=== PATIENT | female | born 1970 | race Caucasian/White ===

== ENCOUNTER 2017-10-07 22:47 | Emergency (ER) | payer MEDICAID ==
[~2017-10-07] VITALS: Ht 157.5 cm; Wt 56.9 kg
[~2017-10-07 22:47] MED LIST: ALOG25TA PO; LISI-424 PO; METF500T4 PO
[2017-10-07 22:54] VITALS: BP 119/77
--- NOTE | 2017-10-07 23:13 | NUR ---
GLUCOSE TOO HIGH TO READ. SHALINI MORRISON MADE AWARE.
[2017-10-07] MEDS ORDERED: NACL 0.9% 1,000 ML IV SCH (23:27)
--- NOTE | 2017-10-07 23:27 | NUR ---
47 Y/O F W/C/O LOW BACK PAIN X2WKS/ HEMATURIA X YESTERDAY AND PAINFULURINATION X 2 DAYS AGO. PT DENIES ANY FEVER. MED HX DM, GUILLIAN BARRE, KIDNEY INFECTION, KIDNEY STONES. PT IN BED, ON MONITOR, VSS. ER MD MADE AWARE.
--- NOTE | 2017-10-07 23:35 | NUR ---
PT TAKEN TO BED 12
[2017-10-07 23:53] LABS: HEMATOCRIT 42.4 % (36-48); HEMOGLOBIN 14.2 g/dL (12.0-16.0); MEAN CORPUSCULAR HEMOGLOBIN 31 pg (27-31); MEAN CORPUSCULAR HGB CONC 34 g/dL (33-37); MEAN CORPUSCULAR VOLUME 93 fL (80-94); PLATELET COUNT (AUTO) 172 K/uL (140-450); RED BLOOD CELL COUNT(AUTO) 4.56 MIL/uL (4.20-5.40); RED CELL DISTRIBUTION WIDTH 11.3 % (11.6-13.7); WHITE BLOOD COUNT (AUTO) 7.5 K/uL (4.8-10.8)
[2017-10-08 00:04] LABS: APPEARANCE,URINE CLOUDY (CLEAR); BILIRUBIN,URINE NEGATIVE (NEGATIVE); BLOOD, URINE 3+ (NEGATIVE); COLOR,URINE RED (YELLOW); LEUKOCYTE ESTERASE ,URINE TRACE (NEGATIVE); NITRITE, URINE NEGATIVE (NEGATIVE); UGLUCOSE 3+ (NEGATIVE)
[2017-10-08 00:11] LABS: ALBUMIN 3.4 g/dL (3.4-5.0); ANION GAP 15.4 (8-16); CARBON DIOXIDE 25.7 mmol/L (21-32); CREATININE 0.9 mg/dL (0.6-1.3); POTASSIUM 4.1 mmol/L (3.5-5.1); TOTAL BILIRUBIN 0.3 mg/dL (0.0-1.0)
[2017-10-08 00:15] LABS: EOSINOPHILS % (MANUAL) 3 % (0-4); LYMPHOCYTES % (MANUAL) 23 % (20-46); MONOCYTES % (MANUAL) 2 % (5-12)
[2017-10-08] MEDS ORDERED: HYDROcodone/APAP 10/325 MG 1 TAB TAB PO STA (00:38)
[2017-10-08] MEDS ORDERED: NACL 0.9% 1,000 ML IV STA (00:38)
[2017-10-08] MEDS ORDERED: INSULIN HUMAN REGULAR 100 UNITS/ML 10 ML VIAL IVP ONE (00:40)
[2017-10-08 00:47] LABS: RBC,URINE TOO NUMEROUS TO COUN /HPF (0-5); WBC,URINE 0-5 (RARE) /HPF (0-5)
--- NOTE | 2017-10-08 01:00 | NUR ---
PT TAKEN TO CT
--- NOTE | 2017-10-08 01:07 | NUR ---
PT RETURN FROM CT
[2017-10-08] MEDS ORDERED: ONDANSETRON 4 MG/2 ML VIAL IVP ONE (01:50)
[2017-10-08] MEDS ORDERED: MORPHINE SULFATE 4 MG/ML SYR IVP ONE (01:50)
--- NOTE | 2017-10-08 02:32 | NUR ---
IV removed, catheter intact and site benign. Applied folded 4x4 gauze and tape to stop bleeding.
--- NOTE | 2017-10-08 02:37 | NUR ---
Patient discharged with v/s stable. Written and verbal after care instructions given and explained. Patient alert, oriented and verbalized understanding of instructions. Ambulatory with steady gait. All questions addressed prior to discharge. ID band removed. Patient advised to follow up with PMD. Rx of NORCO 5/325, REGLAN 10MG, ATIVAN 1MG given. Patient educated on indication of medication including possible reaction and side effects. Opportunity to ask questions provided and answered.
[2017-10-08 02:38] VITALS: BP 122/79
--- NOTE | 2017-10-08 02:38 | NUR ---
PT STATES DAUGHTER WILL TAKE HER HOME.
== END 2017-10-08 02:37 | disposition home or self-care (01) ==
LOC: MED 22:47
DX: M54.5 Low back pain (principal); R31.9 Hematuria, unspecified; R11.2 Nausea with vomiting, unspecified; E11.9 Type 2 diabetes mellitus without complications; Z79.84 Long term (current) use of oral hypoglycemic drugs; Z79.899 Other long term (current) drug therapy; Z88.1 Allergy status to other antibiotic agents; Z91.013 Allergy to seafood; Z88.8 Allergy status to other drugs, medicaments and biological substances
CPT/HCPCS: 36415; 74176; 80053; 81001; 81025; 83690; 85025; 96361; 96374; 96375; 99285; J1815; J2270; J2405; J7030

== ENCOUNTER 2018-02-05 20:03 | Emergency (ER) | payer MEDICAID ==
[~2018-02-05] VITALS: Ht 157.5 cm; Wt 68.0 kg
[2018-02-05 20:07] VITALS: BP 125/79
--- NOTE | 2018-02-05 20:55 | NUR ---
47 Y/O F W/C/O NON RADIATING L ELBOW PAIN AND CHEST PRESSURE X 3 DAYS. PT STATES AT THE MOMENT IS ONLY THE ELBOW PAIN AND CHRONIC BACK PAIN BODERING HER. PT DENIES ANY PRESSURE TO CHEST AT THE MOMENT. NO OTHER S/S OF DISTRESS NOTED. ER MADE AWARE.
[2018-02-05] MEDS ORDERED: traMADol 50 MG TAB PO ONE (21:20)
[2018-02-05 21:22] LABS: BASOPHILS # (AUTO) 0.3 K/uL (0.00-0.22); EOSINOPHILS # (AUTO) 0.1 K/uL (0-0.4); HEMATOCRIT 43.6 % (36-48); HEMOGLOBIN 14.7 g/dL (12.0-16.0); LYMPHOCYTES # (AUTO) 2.8 K/uL (2.5-16.5); MEAN CORPUSCULAR HEMOGLOBIN 31 pg (27-31); MEAN CORPUSCULAR HGB CONC 34 g/dL (33-37); MEAN CORPUSCULAR VOLUME 92 fL (80-94); MONOCYTES # (AUTO) 0.5 K/uL (0.8-1.0); NEUTROPHILS # (AUTO) 3.1 K/uL (1.8-7.7); PLATELET COUNT (AUTO) 211 K/uL (140-450); RED BLOOD CELL COUNT(AUTO) 4.76 MIL/uL (4.20-5.40); RED CELL DISTRIBUTION WIDTH 11.9 % (11.6-13.7); WHITE BLOOD COUNT (AUTO) 6.8 K/uL (4.8-10.8)
[2018-02-05 21:39] LABS: ALBUMIN 3.7 g/dL (3.4-5.0); ANION GAP 13.6 (8-16); CARBON DIOXIDE 29.3 mmol/L (21-32); CREATININE 0.7 mg/dL (0.6-1.3); POTASSIUM 3.9 mmol/L (3.5-5.1); TOTAL BILIRUBIN 0.3 mg/dL (0.0-1.0)
[2018-02-05] MEDS ORDERED: INSULIN REGULAR, HUMAN 100 UNIT/ML VIAL SUBQ ONE (21:45)
[2018-02-05] MEDS ORDERED: NACL 0.9% 1,500 ML IV ONE (21:45)
--- NOTE | 2018-02-05 22:00 | NUR ---
PT RESTING IN BED, AWATING FOR RESULTS. NO S/S OF DISTRESS NOTED AT THE MOMENT.
[2018-02-05] MEDS ORDERED: MORPHINE SULFATE 2 MG/ML SYR IVP ONE (23:05)
[2018-02-05] MEDS ORDERED: diphenhydrAMINE 50 MG/ML VIAL IVP ONE (23:50)
[2018-02-06 00:30] VITALS: BP 125/78
--- NOTE | 2018-02-06 00:30 | NUR ---
Patient discharged with v/s stable. Written and verbal after care instructions given and explained. Patient verbalized understanding. Ambulatory with steady gait. All questions addressed prior to discharge. Advised to follow up with PMD. PT PICKED UP BY DAUGHTER.
== END 2018-02-06 00:30 | disposition home or self-care (01) ==
LOC: MED 20:03
DX: R07.9 Chest pain, unspecified (principal); E11.65 Type 2 diabetes mellitus with hyperglycemia; Z88.6 Allergy status to analgesic agent; Z88.1 Allergy status to other antibiotic agents; Z91.013 Allergy to seafood
CPT/HCPCS: 36415; 71045; 80053; 84484; 85025; 96361; 96374; 96375; 99285; J1200; J1815; J2270; J7030

== ENCOUNTER 2018-02-11 06:35 | Emergency (ER) | payer MEDICAID ==
[~2018-02-11] VITALS: Ht 157.5 cm; Wt 66.3 kg
[2018-02-11 06:40] VITALS: BP 130/84
--- NOTE | 2018-02-11 06:54 | NUR ---
PATIENT AMBULATED TO BED 11
--- NOTE | 2018-02-11 07:12 | NUR ---
RECEIVED REPORT FROM CESAR ROBLEDO. Addendum: 02/11/18 at 721 by [email or web address] PT STATED HEMATURIA, N/V & MARIA VICTORIA BURNS X YESTERDAY & LOWER BACK PAIN 08/05 AT THIS TIME.
--- NOTE | 2018-02-11 07:12 | NUR ---
REPORT GIVEN TO ANALILIA PAGAN.
--- NOTE | 2018-02-11 07:19 | NUR ---
Patient being evaluated by DR KING at bedside.
[2018-02-11] MEDS ORDERED: MORPHINE SULFATE 4 MG/ML SYR IM ONE (07:20)
--- NOTE | 2018-02-11 07:35 | NUR ---
Patient appears to be resting comfortably in bed. Vital Signs within normal limits. Respirations even and unlabored.WILL CONTINUE TO MONITOR.
[2018-02-11 07:45] VITALS: BP 124/85
--- NOTE | 2018-02-11 07:46 | NUR ---
Patient discharged with v/s stable. Written and verbal after care instructions given and explained. Patient alert, oriented and verbalized understanding of instructions. Ambulatory with steady gait. All questions addressed prior to discharge. ID band removed. Patient advised to follow up with PMD. Rx of BACTRIM DS/ NORCO given. Patient educated on indication of medication including possible reaction and side effects. Opportunity to ask questions provided and answered.
== END 2018-02-11 07:46 | disposition home or self-care (01) ==
LOC: MED 06:35
DX: N39.0 Urinary tract infection, site not specified (principal); E11.9 Type 2 diabetes mellitus without complications; G61.0 Guillain-Barre syndrome; Z90.49 Acquired absence of other specified parts of digestive tract; Z88.6 Allergy status to analgesic agent; Z91.013 Allergy to seafood
CPT/HCPCS: 87086; 96372; 99283; J2270; 81002; 81025

== ENCOUNTER 2018-03-14 00:25 | Emergency (ER) | payer MEDICAID ==
[~2018-03-14] VITALS: Ht 157.5 cm; Wt 70.3 kg
[2018-03-14 00:30] VITALS: BP 108/70
[2018-03-14] MEDS ORDERED: traMADol 50 MG TAB PO ONE (00:55)
[2018-03-14] MEDS ORDERED: NACL 0.9% 1,000 ML IV ONE (00:55)
[2018-03-14 01:06] LABS: BASOPHILS % (AUTO) 0.6 % (0.0-2.0); EOSINOPHILS # (AUTO) 0.1 K/uL (0-0.4); EOSINOPHILS % (AUTO) 0.9 % (0.0-4.0); HEMATOCRIT 44.5 % (36-48); HEMOGLOBIN 15.1 g/dL (12.0-16.0); LYMPHOCYTES # (AUTO) 2.8 K/uL (2.5-16.5); LYMPHOCYTES % (AUTO) 42.2 % (20.5-51.1); MEAN CORPUSCULAR HEMOGLOBIN 32 pg (27-31); MEAN CORPUSCULAR HGB CONC 34 g/dL (33-37); MEAN CORPUSCULAR VOLUME 93.4 fL (80-94); MONOCYTES # (AUTO) 0.4 K/uL (0.8-1.0); MONOCYTES % (AUTO) 6.6 % (1.7-9.3); NEUTROPHILS # (AUTO) 3.3 K/uL (1.8-7.7); NEUTROPHILS % (AUTO) 49.7 % (42.2-75.2); PLATELET COUNT (AUTO) 179 K/uL (140-450); RED BLOOD CELL COUNT(AUTO) 4.76 MIL/uL (4.20-5.40); RED CELL DISTRIBUTION WIDTH 12.2 % (11.6-13.7); WHITE BLOOD COUNT (AUTO) 6.7 K/uL (4.8-10.8)
[2018-03-14 01:24] LABS: ANION GAP 14.8 (8-16); CARBON DIOXIDE 25.1 mmol/L (21-32); CREATININE 0.9 mg/dL (0.6-1.3); POTASSIUM 3.9 mmol/L (3.5-5.1)
[2018-03-14] MEDS ORDERED: INSULIN REGULAR, HUMAN 100 UNIT/ML VIAL IVP ONE (01:30)
[2018-03-14 02:29] VITALS: BP 115/78
== END 2018-03-14 02:29 | disposition home or self-care (01) ==
LOC: MED 00:25
DX: S90.121A Contusion of right lesser toe(s) without damage to nail, initial encounter (principal); E11.9 Type 2 diabetes mellitus without complications; G61.0 Guillain-Barre syndrome; Z88.6 Allergy status to analgesic agent; Z88.1 Allergy status to other antibiotic agents; Z88.8 Allergy status to other drugs, medicaments and biological substances; Z91.013 Allergy to seafood; X58.XXXA Exposure to other specified factors, initial encounter; Y93.89 Activity, other specified; Y92.89 Other specified places as the place of occurrence of the external cause; Y99.8 Other external cause status
CPT/HCPCS: 36415; 73660; 80048; 85025; 96360; 99285; J1815; J7030; Q0092

== ENCOUNTER 2018-06-30 00:35 | Emergency (ER) | payer MEDICAID ==
[~2018-06-30] VITALS: Ht 157.5 cm; Wt 64.6 kg
[2018-06-30 00:35] VITALS: BP 120/76
[~2018-06-30 00:35] MED LIST changes: -METF500T4 PO; +METF500T6 PO
--- NOTE | 2018-06-30 00:42 | NUR ---
PT WAS PRESENTED IN ER WITH C/O PAIN IN THE LOWER BACK/FLANK AND SUPRAPUBIC/ABDOMINAL PAIN. PT STATES SHE HAS BURNING WHILE URINATING. AND CRAMPING X 2 DAYS . DENIES N/V/D; SKIN IS PINK/WARM/DRY; AAOX4 WITH EVEN AND STEADY GAIT. PT DENIES ANY FEVER, OR COUGH AT THIS TIME; PATIENT STATES PAIN OF 8/10 AT THIS TIME; VSS; PATIENT POSITIONED FOR COMFORT; HOB ELEVATED; BEDRAILS UP X2; BED DOWN. ER MD MADE AWARE OF PT STATUS.
--- NOTE | 2018-06-30 00:42 | NUR ---
PT TO BED 3.
[2018-06-30] MEDS ORDERED: NACL 0.9% 1,000 ML IV SCH (01:53)
[2018-06-30] MEDS ORDERED: MORPHINE SULFATE 4 MG/ML SYR IVP ONE (01:55)
[2018-06-30 02:35] LABS: ALBUMIN 3.5 g/dL (3.4-5.0); ANION GAP 10.6 (8-16); CARBON DIOXIDE 29.2 mmol/L (21-32); CREATININE 0.9 mg/dL (0.6-1.3); POTASSIUM 3.8 mmol/L (3.5-5.1); TOTAL BILIRUBIN 0.3 mg/dL (0.0-1.0)
--- NOTE | 2018-06-30 02:38 | NUR ---
Critical lab value from lab: blood glucose: [id number] Dr. Ayala notified
[2018-06-30] MEDS ORDERED: diphenhydrAMINE 50 MG/ML VIAL ONE (02:51)
[2018-06-30 03:14] LABS: BASOPHILS % (AUTO) 0.3 % (0.0-2.0); EOSINOPHILS # (AUTO) 0.1 K/uL (0-0.4); HEMATOCRIT 40.2 % (36-48); HEMOGLOBIN 13.9 g/dL (12.0-16.0); LYMPHOCYTES # (AUTO) 3.2 K/uL (2.5-16.5); LYMPHOCYTES % (AUTO) 52.7 % (20.5-51.1); MEAN CORPUSCULAR HEMOGLOBIN 32 pg (27-31); MEAN CORPUSCULAR HGB CONC 35 g/dL (33-37); MEAN CORPUSCULAR VOLUME 93.1 fL (80-94); MONOCYTES # (AUTO) 0.4 K/uL (0.8-1.0); MONOCYTES % (AUTO) 6.5 % (1.7-9.3); NEUTROPHILS # (AUTO) 2.4 K/uL (1.8-7.7); NEUTROPHILS % (AUTO) 39.5 % (42.2-75.2); PLATELET COUNT (AUTO) 168 K/uL (140-450); RED BLOOD CELL COUNT(AUTO) 4.31 MIL/uL (4.20-5.40); RED CELL DISTRIBUTION WIDTH 12.6 % (11.6-13.7); WHITE BLOOD COUNT (AUTO) 6.2 K/uL (4.8-10.8)
[2018-06-30] MEDS ORDERED: diphenhydrAMINE 50 MG/ML VIAL IVP ONE (03:30)
--- NOTE | 2018-06-30 04:50 | NUR ---
Patient discharged with v/s stable. Written and verbal after care instructions given and explained. Patient alert, oriented and verbalized understanding of instructions. Ambulatory with steady gait. All questions addressed prior to discharge. ID band removed. Patient advised to follow up with PMD. Rx of NORCO WAS GIVEN given. Patient educated on indication of medication including possible reaction and side effects. Opportunity to ask questions provided and answered.
[2018-06-30 05:11] VITALS: BP 106/65
== END 2018-06-30 04:50 | disposition home or self-care (01) ==
LOC: MED 00:35
DX: N23 Unspecified renal colic (principal); E11.65 Type 2 diabetes mellitus with hyperglycemia; Z79.84 Long term (current) use of oral hypoglycemic drugs; Z88.1 Allergy status to other antibiotic agents; Z88.8 Allergy status to other drugs, medicaments and biological substances; Z79.899 Other long term (current) drug therapy
CPT/HCPCS: 36415; 74176; 80053; 81002; 81025; 82948; 83690; 85025; 96361; 96374; 96375; 99285; J1200; J2270; J7030

== ENCOUNTER 2018-08-21 22:22 | Emergency (ER) | payer MEDICAID ==
[~2018-08-21] VITALS: Ht 157.5 cm; Wt 68.0 kg
[2018-08-21 22:23] VITALS: BP 125/82
[2018-08-21] MEDS ORDERED: NACL 0.9% 500 ML IV ONE (22:26)
--- NOTE | 2018-08-21 22:27 | NUR ---
PT TAKEN TO BED 2
--- NOTE | 2018-08-21 22:29 | NUR ---
47/F CAME IN ED, C/O 07/05 CONSTANT LOWER BACK PAIN, X2 DAYS. PT STATED THAT PT STARTED AFTER SHE PASSED A STONE YESTERDAY. PT REPORTS N/V, DYSURIA, HEMATURIA. PT DENIES TRAUMA, FEVER. BS ACTIVE X4, ABD SOFT ROUND NONTENDER. AOX4, AMBULATORY, RR EVEN AND UNLABORED. HX DM, GUILLAN-BARRE SYNDROME, KIDNEY STONES
--- NOTE | 2018-08-21 22:32 | NUR ---
Dr. Dao evaluating patient at bedside.
[2018-08-21] MEDS ORDERED: MORPHINE SULFATE 2 MG/ML SYR IVP ONE (22:35)
[2018-08-21] MEDS ORDERED: METOCLOPRAMIDE 10 MG/2 ML INJ VIAL IVP ONE (22:35)
--- NOTE | 2018-08-21 22:52 | NUR ---
PT TAKEN TO CT
--- NOTE | 2018-08-21 23:01 | NUR ---
PT RETURN FROM CT
[2018-08-21] MEDS ORDERED: NACL 0.9% 2,000 ML IV ONE (23:10)
[2018-08-21] MEDS ORDERED: diphenhydrAMINE 50 MG/ML VIAL IVP ONE (23:10)
--- NOTE | 2018-08-21 23:14 | NUR ---
PT REPORTS ITCHING IN FACE AFTER MORPHINE IVP, NO HIVES NOTED. BS 551 AT THIS TIME. ER MD MADE AWARE. MED AND IVF GIVEN WITH EDUCATION.
[2018-08-21] MEDS ORDERED: cefTRIAXone 1,000 MG VIAL ONE (23:55)
[2018-08-22 00:09] LABS: APPEARANCE,URINE CLOUDY (CLEAR); BILIRUBIN,URINE NEGATIVE (NEGATIVE); BLOOD, URINE 3+ (NEGATIVE); COLOR,URINE RED (YELLOW); LEUKOCYTE ESTERASE ,URINE NEGATIVE (NEGATIVE); NITRITE, URINE NEGATIVE (NEGATIVE); UGLUCOSE 3+ (NEGATIVE)
[2018-08-22] MEDS ORDERED: INSULIN REGULAR, HUMAN 100 UNIT/ML VIAL SUBQ ONE (00:10)
[2018-08-22 00:22] LABS: RBC,URINE TOO NUMEROUS TO COUN /HPF (0-5); WBC,URINE 0-5 (RARE) /HPF (0-5)
[2018-08-22 00:40] LABS: BASOPHILS % (AUTO) 0.5 % (0.0-2.0); HEMATOCRIT 43.1 % (36-48); HEMOGLOBIN 14.8 g/dL (12.0-16.0); MEAN CORPUSCULAR HEMOGLOBIN 32 pg (27-31); MONOCYTES # (AUTO) 0.5 K/uL (0.8-1.0); NEUTROPHILS # (AUTO) 3.5 K/uL (1.8-7.7); WHITE BLOOD COUNT (AUTO) 7.5 K/uL (4.8-10.8)
[2018-08-22 00:45] LABS: EOSINOPHILS % (AUTO) 0.6 % (0.0-4.0); LYMPHOCYTES # (AUTO) 3.4 K/uL (2.5-16.5); LYMPHOCYTES % (AUTO) 44.9 % (20.5-51.1); MEAN CORPUSCULAR HGB CONC 34 g/dL (33-37); MEAN CORPUSCULAR VOLUME 93.5 fL (80-94); RED CELL DISTRIBUTION WIDTH 12.4 % (11.6-13.7)
[2018-08-22 00:50] LABS: PLATELET COUNT (AUTO) 87 K/uL (140-450)
[2018-08-22 00:53] LABS: ANION GAP 12.5 (8-16); CARBON DIOXIDE 24.3 mmol/L (21-32); CREATININE 0.8 mg/dL (0.6-1.3); POTASSIUM 3.8 mmol/L (3.5-5.1)
--- NOTE | 2018-08-22 01:11 | NUR ---
BS 346 MADE AWARE.
[2018-08-22 01:34] VITALS: BP 113/90
--- NOTE | 2018-08-22 01:34 | NUR ---
Patient discharged with v/s stable. Written and verbal after care instructions given and explained. Patient alert, oriented and verbalized understanding of instructions. Ambulatory with steady gait. All questions addressed prior to discharge. ID band removed. Patient advised to follow up with PMD. Rx of TRAMADOL AND MACROBID was given. Patient educated on indication of medication including possible reaction and side effects. Opportunity to ask questions provided and answered.
== END 2018-08-22 01:34 | disposition home or self-care (01) ==
LOC: MED 22:22
DX: N30.01 Acute cystitis with hematuria (principal); E11.65 Type 2 diabetes mellitus with hyperglycemia; G61.0 Guillain-Barre syndrome; Z88.6 Allergy status to analgesic agent; Z88.1 Allergy status to other antibiotic agents; Z88.2 Allergy status to sulfonamides; Z79.899 Other long term (current) drug therapy; Z79.84 Long term (current) use of oral hypoglycemic drugs
CPT/HCPCS: 36415; 74176; 80048; 81001; 81002; 81025; 82948; 85025; 96361; 96365; 96372; 96375; 99284; J0696; J1200; J1815; J2270; J2765; J7030; J7060

== ENCOUNTER 2018-09-18 21:14 | Emergency (ER) | payer MEDICAID ==
[~2018-09-18] VITALS: Ht 157.5 cm; Wt 70.3 kg
[~2018-09-18 21:14] MED LIST changes: +METF-988 PO; -METF500T6 PO
[2018-09-18 21:20] VITALS: BP 120/73
[2018-09-18] MEDS ORDERED: fentaNYL 0.05 MG/ML VIAL IM ONE (22:05)
[2018-09-18] MEDS ORDERED: ACETAMINOPHEN EXTRA STRENGTH 500 MG TAB PO ONE (22:05)
[2018-09-18 22:51] VITALS: BP 123/72
== END 2018-09-18 22:45 | disposition home or self-care (01) ==
LOC: MED 21:14
DX: S63.502A Unspecified sprain of left wrist, initial encounter (principal); M25.512 Pain in left shoulder; E11.9 Type 2 diabetes mellitus without complications; Z90.49 Acquired absence of other specified parts of digestive tract; Z88.6 Allergy status to analgesic agent; Z88.1 Allergy status to other antibiotic agents; Z79.899 Other long term (current) drug therapy; Z91.013 Allergy to seafood; X58.XXXA Exposure to other specified factors, initial encounter; Y93.01 Activity, walking, marching and hiking; Y92.89 Other specified places as the place of occurrence of the external cause; Y99.8 Other external cause status
CPT/HCPCS: 73030; 73110; 96372; 99284; J3010

== ENCOUNTER 2019-01-27 19:10 | Emergency (ER) | payer MEDICAID ==
[~2019-01-27] VITALS: Ht 157.5 cm; Wt 65.9 kg
[2019-01-27 19:55] VITALS: BP 132/86
[2019-01-27 20:54] LABS: BASOPHILS % (AUTO) 0.4 % (0.0-2.0); EOSINOPHILS % (AUTO) 0.3 % (0.0-4.0); HEMATOCRIT 43.4 % (36-48); LYMPHOCYTES # (AUTO) 2.4 K/uL (2.5-16.5); LYMPHOCYTES % (AUTO) 36.6 % (20.5-51.1); MEAN CORPUSCULAR HEMOGLOBIN 32 pg (27-31); MEAN CORPUSCULAR HGB CONC 35 g/dL (33-37); MONOCYTES # (AUTO) 0.4 K/uL (0.8-1.0); MONOCYTES % (AUTO) 6.4 % (1.7-9.3); NEUTROPHILS # (AUTO) 3.7 K/uL (1.8-7.7); NEUTROPHILS % (AUTO) 56.3 % (42.2-75.2); PLATELET COUNT (AUTO) 184 K/uL (140-450); RED BLOOD CELL COUNT(AUTO) 4.72 MIL/uL (4.20-5.40); RED CELL DISTRIBUTION WIDTH 12.4 % (11.6-13.7); WHITE BLOOD COUNT (AUTO) 6.5 K/uL (4.8-10.8)
[2019-01-27 20:55] LABS: APPEARANCE,URINE CLEAR (CLEAR); BILIRUBIN,URINE NEGATIVE (NEGATIVE); BLOOD, URINE 3+ (NEGATIVE); COLOR,URINE RED (YELLOW); LEUKOCYTE ESTERASE ,URINE 1+ (NEGATIVE); NITRITE, URINE NEGATIVE (NEGATIVE); UGLUCOSE 3+ (NEGATIVE)
[2019-01-27 21:05] LABS: RBC,URINE TOO NUMEROUS TO COUN /HPF (0-5)
[2019-01-27 21:06] LABS: URINE AMORPHOUS URATE 1+ /HPF (None Seen)
--- NOTE | 2019-01-27 21:07 | NUR ---
PT TAKEN TO BED 7
[2019-01-27 21:11] LABS: ALBUMIN 3.8 g/dL (3.4-5.0); ANION GAP 13.6 (8-16); CARBON DIOXIDE 27.7 mmol/L (21-32); CREATININE 0.9 mg/dL (0.6-1.3); POTASSIUM 4.3 mmol/L (3.5-5.1); TOTAL BILIRUBIN 0.3 mg/dL (0.0-1.0)
[2019-01-27] MEDS ORDERED: NACL 0.9% 1,000 ML IV ONE (21:20)
--- NOTE | 2019-01-27 21:30 | NUR ---
PT BIB SELF C/O LOWER BACK PAIN, DYSURIA X3 DAYS. PT STATES SUDDEN ONSET OF LOWER BACK PAIN WHILE AT WORK X3 DAYS, +HEMATURIA, +DYSURIA, +BURNING W/ URINATION. PT STATES 8/10 LOWER BACK PAIN THAT RADIATES TO INNER LEFT THIGH. --DENIES N/V/D; SKIN IS PINK/WARM/DRY; AAOX4 WITH EVEN AND STEADY GAIT; LUNGS CLEAR BL; HR EVEN AND REGULAR; PT DENIES ANY FEVER, CP, SOB, OR COUGH AT THIS TIME; VSS; PATIENT POSITIONED FOR COMFORT; HOB ELEVATED; BEDRAILS UP X2; BED DOWN. ER MD MADE AWARE OF PT STATUS. PMH: Guillain-Pembroke, DM, KIDNEY STONES
--- NOTE | 2019-01-27 21:58 | NUR ---
Dr. Nelson evaluating patient at bedside.
[2019-01-27] MEDS ORDERED: INSULIN REGULAR, HUMAN 100 UNIT/ML VIAL SUBQ ONE (22:05)
[2019-01-27] MEDS ORDERED: diphenhydrAMINE 50 MG/ML VIAL IVP ONE (22:05)
[2019-01-27] MEDS ORDERED: MORPHINE SULFATE 4 MG/ML SYR IVP ONE (22:05)
[2019-01-27] MEDS ORDERED: INSULIN REGULAR, HUMAN 100 UNIT/ML VIAL IV ONE (23:30)
[2019-01-28 00:50] VITALS: BP 138/80
--- NOTE | 2019-01-28 00:50 | NUR ---
Patient discharged with v/s stable. Written and verbal after care instructions given and explained. Patient alert, oriented and verbalized understanding of instructions. Ambulatory with steady gait. All questions addressed prior to discharge. ID band removed. Patient advised to follow up with PMD. Rx of CIPRO AND TRAMADOL given. Patient educated on indication of medication including possible reaction and side effects. Opportunity to ask questions provided and answered.
== END 2019-01-28 00:50 | disposition home or self-care (01) ==
LOC: MED 19:10
DX: N39.0 Urinary tract infection, site not specified (principal); E11.65 Type 2 diabetes mellitus with hyperglycemia; Z76.0 Encounter for issue of repeat prescription; R05 Cough; G61.0 Guillain-Barre syndrome; Z87.442 Personal history of urinary calculi; Z90.49 Acquired absence of other specified parts of digestive tract; Z98.890 Other specified postprocedural states; Z79.4 Long term (current) use of insulin; Z79.899 Other long term (current) drug therapy; Z88.6 Allergy status to analgesic agent; Z88.8 Allergy status to other drugs, medicaments and biological substances; Z88.1 Allergy status to other antibiotic agents; Z91.013 Allergy to seafood
CPT/HCPCS: 36415; 80053; 81001; 85025; 87086; 96361; 96372; 96374; 96375; 99283; J1200; J1815; J2270; J7030

== ENCOUNTER 2019-03-07 03:38 | Emergency (ER) | payer MEDICAID ==
[~2019-03-07] VITALS: Ht 157.5 cm; Wt 68.0 kg
[2019-03-07 03:48] VITALS: BP 128/90
--- NOTE | 2019-03-07 03:48 | NUR ---
TO BED # 07 AMBULATORY
--- NOTE | 2019-03-07 03:56 | NUR ---
48 YO F BIB SELF C/O 07/05 LOWER ABD CRAMPING PAIN X 2 DAYS S/P PASSING KIDNEY STONE. PT STATES SHE PASSED KIDNEY STONE ON SUNDAY AND BEGAN HAVING "PERIOD-LIKE" CRAMPING. PT STATES LAST PERIOD WAS IN 2008. PMH: DM, KIDNEY STONES, GUILLIAN BARRE
--- NOTE | 2019-03-07 04:10 | NUR ---
DR. CHAVEZ BEDSIDE WITH PT
[2019-03-07] MEDS ORDERED: MORPHINE SULFATE 4 MG/ML SYR IM ONE (04:15)
[2019-03-07] MEDS ORDERED: NACL 0.9% 1,000 ML IV ONE ×2 (04:15→04:55)
[2019-03-07 04:33] LABS: APPEARANCE,URINE CLOUDY (CLEAR); BILIRUBIN,URINE NEGATIVE (NEGATIVE); BLOOD, URINE 3+ (NEGATIVE); COLOR,URINE RED (YELLOW); LEUKOCYTE ESTERASE ,URINE TRACE (NEGATIVE); NITRITE, URINE NEGATIVE (NEGATIVE); UGLUCOSE 3+ (NEGATIVE)
[2019-03-07 04:35] LABS: BASOPHILS # (AUTO) 0.2 K/uL (0.00-0.22); BASOPHILS % (AUTO) 2.5 % (0.0-2.0); EOSINOPHILS # (AUTO) 0.7 K/uL (0-0.4); EOSINOPHILS % (AUTO) 10.6 % (0.0-4.0); HEMOGLOBIN 14.6 g/dL (12.0-16.0); LYMPHOCYTES % (AUTO) 31.9 % (20.5-51.1); MEAN CORPUSCULAR HEMOGLOBIN 32 pg (27-31); MEAN CORPUSCULAR HGB CONC 35 g/dL (33-37); MEAN CORPUSCULAR VOLUME 93.2 fL (80-94); MONOCYTES # (AUTO) 0.4 K/uL (0.8-1.0); PLATELET COUNT (AUTO) 193 K/uL (140-450); RED BLOOD CELL COUNT(AUTO) 4.51 MIL/uL (4.20-5.40); RED CELL DISTRIBUTION WIDTH 12.3 % (11.6-13.7); WHITE BLOOD COUNT (AUTO) 6.1 K/uL (4.8-10.8)
[2019-03-07 04:42] LABS: RBC,URINE TOO NUMEROUS TO COUN /HPF (0-5); WBC,URINE 0-5 /HPF (0-5)
[2019-03-07 04:46] LABS: ALBUMIN 3.6 g/dL (3.4-5.0); ANION GAP 14.2 (8-16); CARBON DIOXIDE 26.5 mmol/L (21-32); CREATININE 0.7 mg/dL (0.6-1.3); POTASSIUM 3.7 mmol/L (3.5-5.1); TOTAL BILIRUBIN 0.3 mg/dL (0.0-1.0)
[2019-03-07] MEDS ORDERED: diphenhydrAMINE 50 MG/ML VIAL IVP ONE (05:05)
[2019-03-07] MEDS ORDERED: INSULIN REGULAR, HUMAN 100 UNIT/ML VIAL SUBQ ONE (05:05)
[2019-03-07 06:14] VITALS: BP 110/67
--- NOTE | 2019-03-07 06:14 | NUR ---
Patient discharged with v/s stable. Written and verbal after care instructions given and explained. Patient alert, oriented and verbalized understanding of instructions. Ambulatory with steady gait. All questions addressed prior to discharge. ID band removed. Patient advised to follow up with PMD. Rx of [place], Ciproflaxacin given. Patient educated on indication of medication including possible reaction and side effects. Opportunity to ask questions provided and answered.
== END 2019-03-07 06:14 | disposition home or self-care (01) ==
LOC: MED 03:38
DX: N34.2 Other urethritis (principal); E11.9 Type 2 diabetes mellitus without complications; Z79.84 Long term (current) use of oral hypoglycemic drugs; Z79.899 Other long term (current) drug therapy; Z88.1 Allergy status to other antibiotic agents; Z88.6 Allergy status to analgesic agent; Z88.8 Allergy status to other drugs, medicaments and biological substances; Z87.442 Personal history of urinary calculi
CPT/HCPCS: 36415; 80053; 81001; 81025; 82803; 82948; 83690; 85025; 96372; 96374; 96375; 99283; J1200; J1815; J2270; J7030

== ENCOUNTER 2019-03-08 15:54 | Emergency (ER) | payer MEDICAID ==
[~2019-03-08] VITALS: Ht 157.5 cm; Wt 64.9 kg
[2019-03-08 15:59] VITALS: BP 133/84
[2019-03-08 16:31] LABS: APPEARANCE,URINE HAZY (CLEAR); BILIRUBIN,URINE NEGATIVE (NEGATIVE); BLOOD, URINE 3+ (NEGATIVE); COLOR,URINE RED (YELLOW); LEUKOCYTE ESTERASE ,URINE NEGATIVE (NEGATIVE); NITRITE, URINE NEGATIVE (NEGATIVE); UGLUCOSE 3+ (NEGATIVE)
[2019-03-08 16:38] LABS: RBC,URINE TOO NUMEROUS TO COUN /HPF (0-5); WBC,URINE 0-5 /HPF (0-5)
--- NOTE | 2019-03-08 18:45 | NUR ---
PT AMBULATED TO BED 03.
--- NOTE | 2019-03-08 19:12 | NUR ---
48 YO F BIB DAUGHTER PRESENTS TO THE ED C/O ONGOING 09/04 FLANK/ LOWER BACK PAIN X 2 DAYS. PT WAS SEEN AT [facility] ED SUNDAY MORNING FOR SIMILAR PAIN S/P PASSING A KIDNEY STONE. PT RECEIVED RX FOR NORCO AND STATES THAT IT DOES NOT RELIEVE PAIN AND MAKES HER NAUSEOUS. PT ALSO REPORTS BLOOD TINGED DISCHARGE FROM HER [facility]. -- PMH: KIDNEY STONES, DM, ALLEN BARRE PT POSITIONED FOR COMFORT. HOB ELEVATED. SIDE RAIL UP X1. BED IN LOWEST POSITION. NO APPARENT DISTRESS AT THIS TIME. VSS.
--- NOTE | 2019-03-08 19:12 | NUR ---
RECIEVED REPORT FROM CESAR LYONS.
[2019-03-08] MEDS ORDERED: METOCLOPRAMIDE 10 MG/2 ML INJ VIAL IVP ONE (19:15)
[2019-03-08] MEDS ORDERED: NACL 0.9% 1,000 ML IV ONE ×2 (19:15→20:55)
[2019-03-08 19:36] LABS: BASOPHILS % (AUTO) 0.4 % (0.0-2.0); EOSINOPHILS % (AUTO) 0.1 % (0.0-4.0); HEMATOCRIT 48.2 % (36-48); HEMOGLOBIN 16.5 g/dL (12.0-16.0); LYMPHOCYTES # (AUTO) 2.6 K/uL (2.5-16.5); LYMPHOCYTES % (AUTO) 31.6 % (20.5-51.1); MEAN CORPUSCULAR HEMOGLOBIN 32 pg (27-31); MEAN CORPUSCULAR HGB CONC 34 g/dL (33-37); MEAN CORPUSCULAR VOLUME 93.9 fL (80-94); MONOCYTES # (AUTO) 0.4 K/uL (0.8-1.0); MONOCYTES % (AUTO) 4.7 % (1.7-9.3); NEUTROPHILS # (AUTO) 5.2 K/uL (1.8-7.7); NEUTROPHILS % (AUTO) 63.2 % (42.2-75.2); PLATELET COUNT (AUTO) 202 K/uL (140-450); RED BLOOD CELL COUNT(AUTO) 5.14 MIL/uL (4.20-5.40); RED CELL DISTRIBUTION WIDTH 12.4 % (11.6-13.7); WHITE BLOOD COUNT (AUTO) 8.2 K/uL (4.8-10.8)
--- NOTE | 2019-03-08 19:53 | NUR ---
US AT BEDSIDE.
[2019-03-08 19:59] LABS: ALBUMIN 3.8 g/dL (3.4-5.0); ANION GAP 15.6 (8-16); CARBON DIOXIDE 25.9 mmol/L (21-32); CREATININE 0.8 mg/dL (0.6-1.3); POTASSIUM 3.5 mmol/L (3.5-5.1); TOTAL BILIRUBIN 0.5 mg/dL (0.0-1.0)
[2019-03-08] MEDS ORDERED: INSULIN REGULAR, HUMAN 100 UNIT/ML VIAL SUBQ ONE (20:55)
[2019-03-08] MEDS ORDERED: MORPHINE SULFATE 4 MG/ML SYR IVP ONE (21:10)
[2019-03-08] MEDS ORDERED: diphenhydrAMINE 50 MG/ML VIAL IVP ONE ×2 (21:25→22:25)
--- NOTE | 2019-03-08 21:30 | NUR ---
PATIENT RESTING AT THIS TIME; NO SIGNS OF DISTRESS.
--- NOTE | 2019-03-08 22:00 | NUR ---
PATIENT RESTING AT THIS TIME; NO SIGNS OF DISTRESS.
[2019-03-08] MEDS ORDERED: ACETAMINOPHEN EXTRA STRENGTH 500 MG TAB PO ONE (23:25)
[2019-03-08] MEDS ORDERED: MORPHINE SULFATE 2 MG/ML SYR IVP ONE (23:25)
[2019-03-09 00:50] VITALS: BP 129/88
--- NOTE | 2019-03-09 00:50 | NUR ---
Patient discharged with v/s stable. Written and verbal after care instructions given and explained. Patient alert, oriented and verbalized understanding of instructions. Ambulatory with steady gait. All questions addressed prior to discharge. ID band removed. Patient advised to follow up with PMD. Rx of TRAMADOL 50MG given. Patient educated on indication of medication including possible reaction and side effects. Opportunity to ask questions provided and answered.
--- NOTE | 2019-03-10 14:18 | NUR ---
Late entry. Confirmed with RN that 1000 ml 0.9 NS ended at 2210.
== END 2019-03-08 23:59 | disposition home or self-care (01) ==
LOC: MED 15:54
DX: N20.0 Calculus of kidney (principal); E11.9 Type 2 diabetes mellitus without complications; Z87.442 Personal history of urinary calculi; Z79.84 Long term (current) use of oral hypoglycemic drugs; Z79.899 Other long term (current) drug therapy; Z91.013 Allergy to seafood; Z88.6 Allergy status to analgesic agent; Z88.8 Allergy status to other drugs, medicaments and biological substances; Z88.1 Allergy status to other antibiotic agents
CPT/HCPCS: 36415; 76770; 80053; 81001; 81025; 82948; 83690; 85025; 96361; 96372; 96374; 96375; 96376; 99284; J1200; J1815; J2270; J2765; Q0092; J7030

== ENCOUNTER 2019-03-28 00:18 | Emergency (ER) | payer MEDICAID ==
[~2019-03-28] VITALS: Ht 152.4 cm; Wt 65.8 kg
[2019-03-28 00:35] VITALS: BP 115/84
--- NOTE | 2019-03-28 00:36 | NUR ---
TO ER BED 8
--- NOTE | 2019-03-28 00:40 | NUR ---
PT IS A 48 Y/O FEMALE WHO PRESENTS TO THE ED C/O LOW BACK PAIN/DYSURIA. 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 PT REPORTS 10/10 STABBING LOW BACK PAIN AND BURNING URINARY PAIN. PT DENIES CP, SOB, N/V/D. PT AWAKE AND ALERT, RR EVEN/UNLABORED. PT REPOSITIONED FOR COMFORT, BED IN LOWEST POSITION. ER MD DR. JEROME NOTIFIED. WILL CONTINUE TO MONITOR.
[2019-03-28] MEDS ORDERED: NACL 0.9% 500 ML IV ONE (01:47)
[2019-03-28] MEDS ORDERED: fentaNYL 0.05 MG/ML VIAL IVP ONE (01:50)
[2019-03-28] MEDS ORDERED: METOCLOPRAMIDE 10 MG/2 ML INJ VIAL IVP ONE (01:50)
--- NOTE | 2019-03-28 02:00 | NUR ---
Pt awake. VSS at this time. Bed in lowest postion. Will continue to monitor.
[2019-03-28 02:04] LABS: BASOPHILS % (AUTO) 0.3 % (0.0-2.0); EOSINOPHILS # (AUTO) 0.1 K/uL (0-0.4); EOSINOPHILS % (AUTO) 0.7 % (0.0-4.0); HEMATOCRIT 43.9 % (36-48); HEMOGLOBIN 15.4 g/dL (12.0-16.0); LYMPHOCYTES # (AUTO) 3.8 K/uL (2.5-16.5); LYMPHOCYTES % (AUTO) 53.1 % (20.5-51.1); MEAN CORPUSCULAR HEMOGLOBIN 33 pg (27-31); MEAN CORPUSCULAR HGB CONC 35 g/dL (33-37); MONOCYTES # (AUTO) 0.4 K/uL (0.8-1.0); MONOCYTES % (AUTO) 5.9 % (1.7-9.3); NEUTROPHILS # (AUTO) 2.9 K/uL (1.8-7.7); PLATELET COUNT (AUTO) 198 K/uL (140-450); RED BLOOD CELL COUNT(AUTO) 4.72 MIL/uL (4.20-5.40); RED CELL DISTRIBUTION WIDTH 12.2 % (11.6-13.7); WHITE BLOOD COUNT (AUTO) 7.2 K/uL (4.8-10.8)
[2019-03-28 02:18] LABS: ALBUMIN 3.7 g/dL (3.4-5.0); ANION GAP 11.4 (8-16); CARBON DIOXIDE 29.4 mmol/L (21-32); CREATININE 0.8 mg/dL (0.6-1.3); POTASSIUM 3.8 mmol/L (3.5-5.1); TOTAL BILIRUBIN 0.4 mg/dL (0.0-1.0)
[2019-03-28 03:25] VITALS: BP 118/81
--- NOTE | 2019-03-28 03:25 | NUR ---
Patient discharged with v/s stable. Written and verbal after care instructions given and explained. Patient alert, oriented and verbalized understanding of instructions. Ambulatory with steady gait. All questions addressed prior to discharge. ID band removed. Patient advised to follow up with PMD. Rx of MEDROL DOSEPAK, TRAMADOL, AND ROBAXIN given. Patient educated on indication of medication including possible reaction and side effects. Opportunity to ask questions provided and answered.
== END 2019-03-28 03:25 | disposition home or self-care (01) ==
LOC: MED 00:18
DX: S39.012A Strain of muscle, fascia and tendon of lower back, initial encounter (principal); M54.42 Lumbago with sciatica, left side; X58.XXXA Exposure to other specified factors, initial encounter; Y93.89 Activity, other specified; Y92.89 Other specified places as the place of occurrence of the external cause; Y99.8 Other external cause status; E11.9 Type 2 diabetes mellitus without complications; Z87.442 Personal history of urinary calculi; Z79.84 Long term (current) use of oral hypoglycemic drugs; Z79.899 Other long term (current) drug therapy; Z88.6 Allergy status to analgesic agent; Z88.1 Allergy status to other antibiotic agents; Z88.8 Allergy status to other drugs, medicaments and biological substances; Z91.013 Allergy to seafood
CPT/HCPCS: 36415; 74176; 80053; 81002; 81025; 85025; 96374; 96375; 99284; J2765; J3010; J7030

== ENCOUNTER 2019-05-02 12:45 | Emergency (ER) | payer MEDICAID ==
[~2019-05-02] VITALS: Ht 157.5 cm; Wt 64.0 kg
[2019-05-02 12:49] VITALS: BP 119/81
--- NOTE | 2019-05-02 12:56 | NUR ---
PT AMBULATED TO BED 4
--- NOTE | 2019-05-02 12:56 | NUR ---
PATIENT PRESENTS TO ED WITH C/O LT SIDED LOWER BACK PAIN X4 DAYS. SHARP PAIN AT 8/10 THAT RADIATES TO LLQ AND PELVIC AREA. PT REPORTS FREQUENT URINATION AND AND STABING PAIN WITH URINATION. PT STATES N/V PRESENT. SKIN IS PINK/WARM/DRY; AAOX4 WITH EVEN AND STEADY GAIT; LUNGS CLEAR BL; HR EVEN AND REGULAR;
[2019-05-02] MEDS ORDERED: diphenhydrAMINE 50 MG/ML VIAL IM ONE (13:05)
[2019-05-02] MEDS ORDERED: MORPHINE SULFATE 4 MG/ML SYR IM ONE (13:05)
--- NOTE | 2019-05-02 14:23 | NUR ---
DR BRYAN AT BEDSIDE
--- NOTE | 2019-05-02 14:29 | NUR ---
PAIN 3/10 AT THIS TIME.
[2019-05-02 14:30] VITALS: BP 126/80
--- NOTE | 2019-05-02 14:30 | NUR ---
Patient discharged with v/s stable. Written and verbal after care instructions given and explained. Patient alert, oriented and verbalized understanding of instructions. Ambulatory with steady gait. All questions addressed prior to discharge. ID band removed. Patient advised to follow up with PMD. Rx of TRAMADOL HYDROCHLORIDE given. Patient educated on indication of medication including possible reaction and side effects. Opportunity to ask questions provided and answered.
== END 2019-05-02 14:30 | disposition home or self-care (01) ==
LOC: MED 12:45
DX: G89.29 Other chronic pain (principal); M54.5 Low back pain; R35.0 Frequency of micturition; R30.9 Painful micturition, unspecified; E11.9 Type 2 diabetes mellitus without complications; Z90.49 Acquired absence of other specified parts of digestive tract; Z87.442 Personal history of urinary calculi; Z79.84 Long term (current) use of oral hypoglycemic drugs; Z79.899 Other long term (current) drug therapy; Z91.013 Allergy to seafood; Z88.6 Allergy status to analgesic agent; Z88.8 Allergy status to other drugs, medicaments and biological substances; Z88.1 Allergy status to other antibiotic agents
CPT/HCPCS: 96372; 99283; J1200; J2270; 81002; 81025

== ENCOUNTER 2019-05-10 01:05 | Emergency (ER) | payer MEDICAID ==
[~2019-05-10] VITALS: Ht 157.5 cm; Wt 64.9 kg
[2019-05-10 01:16] VITALS: BP 137/85
--- NOTE | 2019-05-10 01:20 | NUR ---
PT SENT TO LOBBY TO WAIT FOR AVAILABLE BED.
--- NOTE | 2019-05-10 01:38 | NUR ---
PT AMBULATED TO ER BED 7
--- NOTE | 2019-05-10 01:40 | NUR ---
48/F PRESENTS TO ED, C/O L LOWER BACK PAIN AND HEMATURIA, X1 WEEK. REPORTS DYSURIA. DENIES INJURY/TRAUMA, NO ABNORMALITY NOTED ON BACK. PT DENIES FEVER, CP, SOB, N/V/D, CONSTIPATION. AOX4, SKIN NORMAL WARM AND DRY, RR EVEN AND UNLABORED. LUNG SOUNDS CLEAR BL. BS ACTIVE X4, ABD SOFT ROUND NONTENDER. HX DM, GUILLAN BARRE, KIDNEY STONES, CHOLECYSTECTOMY, OVARY REMOVED
[2019-05-10] MEDS ORDERED: MORPHINE SULFATE 4 MG/ML SYR IVP ONE (02:00)
[2019-05-10 02:23] LABS: HEMATOCRIT 40.5 % (36-48); HEMOGLOBIN 14.2 g/dL (12.0-16.0); MEAN CORPUSCULAR HEMOGLOBIN 32 pg (27-31); MEAN CORPUSCULAR HGB CONC 35 g/dL (33-37); MEAN CORPUSCULAR VOLUME 92.3 fL (80-94); PLATELET COUNT (AUTO) 201 K/uL (140-450); RED BLOOD CELL COUNT(AUTO) 4.39 MIL/uL (4.20-5.40); RED CELL DISTRIBUTION WIDTH 12.4 % (11.6-13.7); WHITE BLOOD COUNT (AUTO) 6.7 K/uL (4.8-10.8)
[2019-05-10 02:30] LABS: APPEARANCE,URINE CLOUDY (CLEAR); BILIRUBIN,URINE NEGATIVE (NEGATIVE); BLOOD, URINE 3+ (NEGATIVE); COLOR,URINE RED (YELLOW); LEUKOCYTE ESTERASE ,URINE NEGATIVE (NEGATIVE); NITRITE, URINE NEGATIVE (NEGATIVE); UGLUCOSE 3+ (NEGATIVE)
[2019-05-10 02:40] LABS: EOSINOPHILS % (MANUAL) 1 % (0-4); LYMPHOCYTES % (MANUAL) 58 % (20-46); MONOCYTES % (MANUAL) 5 % (5-12)
[2019-05-10 02:41] LABS: ALBUMIN 3.5 g/dL (3.4-5.0); ANION GAP 12.7 (8-16); CARBON DIOXIDE 24.7 mmol/L (21-32); CREATININE 0.7 mg/dL (0.6-1.3); POTASSIUM 3.4 mmol/L (3.5-5.1); TOTAL BILIRUBIN 0.3 mg/dL (0.0-1.0)
[2019-05-10 02:44] LABS: RBC,URINE TOO NUMEROUS TO COUN /HPF (0-5); WBC,URINE 0-5 /HPF (0-5)
--- NOTE | 2019-05-10 02:47 | NUR ---
PT TAKEN TO CT
--- NOTE | 2019-05-10 02:52 | NUR ---
PT RETURNED FROM CT VIA WHEELCHAIR
--- NOTE | 2019-05-10 03:30 | NUR ---
DR PRICE AT BEDSIDE TO SPEAK WITH PT
--- NOTE | 2019-05-10 03:45 | NUR ---
PT ELOPED WITHOUT WRITTEN DISCHARGE INSTRUCTIONS; PT WAS GIVEN VERBAL DISCHARGE INSTRUCTIONS BY DR PRICE. CALLED PT'S NUMBER [phone], NO ANSWER. CALLED PT'S NEXT OF KIN [phone], NO ANSWER.
--- NOTE | 2019-05-10 04:00 | NUR ---
CALLED KHUSHI CORTEZ, INCIDENT#[id number], NOTIFIED THAT PT LEFT WITHOUT IV REMOVED, KHUSHI WILL DO AREA CHECK BUT CAN NOT DO A HOUSE CHECK, WILL CALL [facility] .
--- NOTE | 2019-05-10 04:11 | NUR ---
CALLED AYLIN CORTEZ, INCIDENT#[id number], NOTIFIED THAT PT LEFT WITHOUT HAVING IV REMOVED, NOTIFIED THAT KHUSHI CORTEZ WILL DO AN AREA CHECK BUT COULD NOT DO A HOUSE CHECK, REQUESTED FOR HOUSE CHECK.
--- NOTE | 2019-05-10 04:30 | NUR ---
PT CALLED BACK. STATED THAT HER FAMILY MEMBER WHO IS AN SAW FILER REMOVED IV. PT WAS INFORMED THAT [place] [employer] WAS STILL GOING TO BE DISPATCHED OUT TO VERIFY REMOVAL. PT GAVE ADDRESS OF [address] [place] [address].
--- NOTE | 2019-05-10 04:36 | NUR ---
CALLED AYLIN CORTEZ, NOTIFIED THAT PT HAS HAD IV REMOVED BUT STILL NEED HOUSE CHECK TO VERIFY REMOVAL, PT GAVE THE ADDRESS OF [address], [address], [place], [place]. PD TO CHECK ON PT.
--- NOTE | 2019-05-10 05:23 | NUR ---
OFFICER MIRANDA FROM [facility] CONTACTED ME AND MADE ME AWARE THAT HE SAW PATIENT AT HER RESIDENCE AND PATIENT HAD IV REMOVED FROM ARM AND NO FURTHER ASSISTANCE WAS NEEDED.
== END 2019-05-10 03:45 | disposition left against medical advice (07) ==
LOC: MED 01:05
DX: R10.9 Unspecified abdominal pain (principal); R31.9 Hematuria, unspecified; E11.9 Type 2 diabetes mellitus without complications; Z87.442 Personal history of urinary calculi; Z79.84 Long term (current) use of oral hypoglycemic drugs; Z79.899 Other long term (current) drug therapy; Z91.013 Allergy to seafood; Z88.8 Allergy status to other drugs, medicaments and biological substances
CPT/HCPCS: 36415; 74176; 80053; 81001; 81025; 85025; 87086; 96374; 99284; J2270

== ENCOUNTER 2019-09-19 00:05 | Emergency (ER) | payer MEDICAID ==
[~2019-09-19] VITALS: Ht 157.5 cm; Wt 66.2 kg
[2019-09-19 00:05] VITALS: BP 130/84
--- NOTE | 2019-09-19 00:05 | NUR ---
THERESA CORTEZ, PREBOOK. TAKEN TO CHAIR C
--- NOTE | 2019-09-19 00:11 | NUR ---
Dr. Le examining patient.
[2019-09-19] MEDS ORDERED: NACL 0.9% 1,000 ML IV ONE (00:15)
[2019-09-19] MEDS ORDERED: INSULIN REGULAR, HUMAN 100 UNIT/ML VIAL IVP ONE (00:15)
--- NOTE | 2019-09-19 00:16 | NUR ---
PT MOVED TO BED 9
--- NOTE | 2019-09-19 00:35 | NUR ---
49 YO F BIB [place] [employer] FOR PREBOOK. PT PICKED UP FROM HOME FOR WARRANT. WAS NOT ACCEPTED DURING BOOKING DUE TO HYPERGLYCEMIA. BS 434. PT DENIES PAIN OR S/SX AT THIS TIME. OFFICER AT BEDSIDE. -- PT AWAKE, A/O X 4. CALM, COOPERATIVE. BEHAVIOR APPROPRIATE. ANSWERS QUESTIONS IN CLEAR, FULL SENTENCES. -- SKIN PINK, WARM, DRY. BREATHING EVEN, UNLABORED. PMH-- DM, ALEJANDRO TAO
[2019-09-19 01:25] VITALS: BP 115/86
--- NOTE | 2019-09-19 02:11 | NUR ---
Patient discharged with v/s stable. Written and verbal after care instructions given and explained. Patient verbalized understanding. Ambulatory with [place] [employer] in custody. All questions addressed prior to discharge. Advised to follow up with PMD.
--- NOTE | 2019-09-19 08:45 | NUR ---
Late entry. Confirmed with RN that 1000ml 0.9 NS IV completed at 0125
== END 2019-09-19 02:11 ==
LOC: MED 00:05
DX: E11.65 Type 2 diabetes mellitus with hyperglycemia (principal); E11.9 Type 2 diabetes mellitus without complications; G61.0 Guillain-Barre syndrome; Z88.6 Allergy status to analgesic agent; Z88.1 Allergy status to other antibiotic agents; Z88.8 Allergy status to other drugs, medicaments and biological substances; Z79.84 Long term (current) use of oral hypoglycemic drugs; Z79.899 Other long term (current) drug therapy; Z87.442 Personal history of urinary calculi; Z90.49 Acquired absence of other specified parts of digestive tract
CPT/HCPCS: 96361; 96374; 99283; J1815; J7030

== ENCOUNTER 2024-06-05 21:17 | Emergency (ER) | payer MEDICAID ==
[~2024-06-05] VITALS: Ht 152.4 cm; Wt 70.8 kg
[~2024-06-05 21:17] MED LIST changes: -LISI-424 PO; +LISI5TAB24 PO; +METF-1243 PO; -METF-988 PO
[2024-06-05 21:21] VITALS: BP 120/74; PULSE 119; RESP 16; TEMP 97.2; O2SAT 99
[2024-06-05] MEDS ORDERED: LIDO5CRE19 TP (22:28)
[2024-06-05] MEDS ORDERED: CYCL-711 PO (22:28)
[2024-06-05] MEDS ORDERED: ACET-10509 PO (22:28)
[2024-06-05] MEDS: ACETAMINOPHEN EXTRA STRENGTH 500 MG TAB PO ONE (22:34)
[2024-06-05] MEDS: LIDOCAINE 5% 1 EA PATCH TP ONE (22:34)
[2024-06-05] MEDS: CYCLOBENZAPRINE 10 MG TAB PO ONE (22:34)
[2024-06-05 22:38] VITALS: BP 134/84; PULSE 110; RESP 18; TEMP 97.7; O2SAT 98
== END 2024-06-05 22:38 | disposition home or self-care (01) ==
LOC: MED 21:17
DX: M43.6 Torticollis (principal); E11.9 Type 2 diabetes mellitus without complications; Z87.442 Personal history of urinary calculi; Z79.84 Long term (current) use of oral hypoglycemic drugs; Z79.1 Long term (current) use of non-steroidal anti-inflammatories (NSAID); Z79.899 Other long term (current) drug therapy; Z88.6 Allergy status to analgesic agent; Z88.1 Allergy status to other antibiotic agents; Z88.8 Allergy status to other drugs, medicaments and biological substances
CPT/HCPCS: 99284